=== PATIENT | female | born 1990 | race African-American/Black ===

== ENCOUNTER 2019-06-25 09:16 | Inpatient (IN) | payer OTHER ==
[~2019-06-25] VITALS: Ht 165.1 cm; Wt 75.3 kg
[2019-06-25 10:14] LABS: UA SPECIFIC GRAVITY >=1.030 (1.005-1.035); microscopic required? YES; urine erythrocyte 1+ (NEGATIVE)
[2019-06-25 10:30] LABS: ALBUMIN 4.1 g/dL (3.4-5.0); ALKALINE PHOSPHATASE 66 U/L (46-116); ALT/SGPT 15 U/L (14-59); AST/SGOT 43 U/L (15-37); BILIRUBIN TOTAL 0.35 mg/dL (0.20-1.00); CALCIUM 9.7 mg/dL (8.5-10.1); CARBON DIOXIDE 21.6 mmol/L (21-32); CHLORIDE SERUM 128 mmol/L (98-107); GLUCOSE SERUM 245 mg/dL (74-106); POTASSIUM SERUM 4.5 mmol/L (3.5-5.1)
[2019-06-25 10:32] LABS: AMPHETAMINE QUAL UR NONE DETECTED (See below)
[2019-06-25 10:44] LABS: GFR1 7 mL/min; TOTAL PROTEIN, SERUM 9.3 g/dL (6.4-8.2)
[2019-06-25 10:48] LABS: LIPASE 2077 IU/L (73-393)
[2019-06-25 10:51] LABS: SODIUM SERUM 173 mmol/L (136-145)
[2019-06-25 10:52] LABS: CREATININE SERUM 7.3 mg/dL (0.6-1.0); MAGNESIUM 4.3 mg/dL (1.8-2.4)
[2019-06-25 11:21] LABS: PLATELET COUNT 74 x10^3mcL (130-400); RED CELL DISTRIBUTION WIDTH 21.3 % (11.5-14.5)
[2019-06-25 11:24] LABS: SEGMENTED NEUTROPHILS 92 % (37-75)
[2019-06-25 11:25] LABS: MONOCYTE 3 % (0-7); rbc morphology (normal/abnorm) ABNORMAL (NORMAL)
[2019-06-25 11:26] LABS: PLATELET MORPHOLOGY DECREASED
[2019-06-25 15:02] LABS: ALBUMIN 3.4 g/dL (3.4-5.0); BILIRUBIN TOTAL 0.3 mg/dL (0.20-1.00); CALCIUM 8.6 mg/dL (8.5-10.1); CARBON DIOXIDE 20.5 mmol/L (21-32); POTASSIUM SERUM 4.6 mmol/L (3.5-5.1)
[2019-06-25 15:07] LABS: CREATININE SERUM 6.3 mg/dL (0.6-1.0)
[2019-06-25 17:22] VITALS: BP 95/60
[2019-06-25 19:15] VITALS: BP 93/51
[2019-06-25 23:07] VITALS: BP 114/71
[2019-06-26] VITALS (8 sets, daily range): BP systolic 91–134; BP diastolic 54–82; Ht 165.1 cm; Wt 75.3 kg
[2019-06-26 05:32] LABS: BASOPHIL % 0 % (0-2); PLATELET COUNT 55 x10^3mcL (130-400); RED CELL DISTRIBUTION WIDTH 22.2 % (11.5-14.5)
[2019-06-26 05:47] LABS: BILIRUBIN DIRECT 0.16 mg/dL (0.0-0.2); BILIRUBIN TOTAL 0.5 mg/dL (0.20-1.00); CALCIUM 8.2 mg/dL (8.5-10.1); PHOSPHOROUS 3.6 mg/dL (2.5-4.9); POTASSIUM SERUM 4.4 mmol/L (3.5-5.1)
[2019-06-26 05:54] LABS: ALBUMIN 3.2 g/dL (3.4-5.0)
[2019-06-26 05:55] LABS: AMYLASE 126 U/L (25-115); LIPASE 1004 IU/L (73-393)
[2019-06-26 05:59] LABS: CREATININE SERUM 4.9 mg/dL (0.6-1.0)
[2019-06-27] VITALS (9 sets, daily range): BP systolic 100–117; BP diastolic 56–79
[2019-06-27 05:43] LABS: PLATELET COUNT 50 x10^3mcL (130-400); RED CELL DISTRIBUTION WIDTH 22.5 % (11.5-14.5)
[2019-06-27 05:51] LABS: ALBUMIN 3.1 g/dL (3.4-5.0); BILIRUBIN TOTAL 0.53 mg/dL (0.20-1.00); CALCIUM 8.5 mg/dL (8.5-10.1); CARBON DIOXIDE 21.1 mmol/L (21-32); CREATININE SERUM 3.3 mg/dL (0.6-1.0); MAGNESIUM 2.6 mg/dL (1.8-2.4); PHOSPHOROUS 3.4 mg/dL (2.5-4.9); POTASSIUM SERUM 3.6 mmol/L (3.5-5.1); TOTAL PROTEIN, SERUM 7.1 g/dL (6.4-8.2)
[2019-06-27 06:18] LABS: BAND NEUTROPHIL 0 % (0-10); BASOPHIL 0 % (0-2); MONOCYTE 6 % (0-7); SEGMENTED NEUTROPHILS 87 % (37-75)
[2019-06-27 06:19] LABS: ovalocyte/elliptocyte 1+; rbc morphology (normal/abnorm) ABNORMAL (NORMAL)
[2019-06-27 06:21] LABS: burr cell (echinocyte) 1+
[2019-06-27 06:22] LABS: PLATELET MORPHOLOGY PLATELETS DECREASED
[2019-06-28 06:55] VITALS: BP 106/68
[2019-06-28 07:47] LABS: RED CELL DISTRIBUTION WIDTH 22.4 % (11.5-14.5)
[2019-06-28 07:53] LABS: CALCIUM 8.6 mg/dL (8.5-10.1); CARBON DIOXIDE 24.2 mmol/L (21-32); POTASSIUM SERUM 3.2 mmol/L (3.5-5.1)
[2019-06-28 08:40] LABS: BAND NEUTROPHIL 0 % (0-10); BASOPHIL 0 % (0-2); MONOCYTE 8 % (0-7); SEGMENTED NEUTROPHILS 78 % (37-75); rbc morphology (normal/abnorm) ABNORMAL (NORMAL)
[2019-06-28 08:42] LABS: ovalocyte/elliptocyte 1+
[2019-06-28 08:43] LABS: burr cell (echinocyte) 1+
[2019-06-28 09:48] LABS: PLATELET COUNT 49 x10^3mcL (130-400)
[2019-06-28 12:26] VITALS: BP 113/70
[2019-06-28 16:35] VITALS: BP 120/73
[2019-06-28 22:00] VITALS: BP 113/68
[2019-06-29 05:37] VITALS: BP 113/65
[2019-06-29 07:06] LABS: CALCIUM 7.8 mg/dL (8.5-10.1); CARBON DIOXIDE 26.4 mmol/L (21-32); CREATININE SERUM 1.6 mg/dL (0.6-1.0); POTASSIUM SERUM 3.6 mmol/L (3.5-5.1)
[2019-06-29 08:15] LABS: PLATELET COUNT 54 x10^3mcL (130-400)
[2019-06-29 08:44] VITALS: BP 132/76
[2019-06-29 10:51] LABS: BAND NEUTROPHIL 0 % (0-10); BASOPHIL 0 % (0-2); MONOCYTE 12 % (0-7); SEGMENTED NEUTROPHILS 72 % (37-75)
[2019-06-29 10:52] LABS: ovalocyte/elliptocyte 1+; rbc morphology (normal/abnorm) ABNORMAL (NORMAL)
[2019-06-29 10:53] LABS: burr cell (echinocyte) 1+
[2019-06-29 12:07] VITALS: BP 101/65
[2019-06-29 17:05] VITALS: BP 109/68
[2019-06-29 20:37] VITALS: BP 102/60
[2019-06-30 10:41] LABS: BASOPHIL % 0.6 % (0-2)
[2019-06-30 10:46] LABS: CARBON DIOXIDE 28.5 mmol/L (21-32); CREATININE SERUM 1.5 mg/dL (0.6-1.0)
[2019-06-30 11:12] LABS: POTASSIUM SERUM 2.7 mmol/L (3.5-5.1)
[2019-06-30 12:10] LABS: PLATELET COUNT 78 x10^3mcL (130-400); RED CELL DISTRIBUTION WIDTH 22.1 % (11.5-14.5)
[2019-06-30 13:00] VITALS: BP 102/58; BP 117/67
[2019-06-30 16:44] VITALS: BP 115/76
[2019-07-01 06:40] VITALS: BP 102/55
[2019-07-01 08:21] LABS: BASOPHIL % 0.2 % (0-2)
[2019-07-01 08:58] LABS: PLATELET COUNT 88 x10^3mcL (130-400); RED CELL DISTRIBUTION WIDTH 20.9 % (11.5-14.5)
[2019-07-01 09:07] LABS: CALCIUM 7.5 mg/dL (8.5-10.1); CARBON DIOXIDE 28.6 mmol/L (21-32); CREATININE SERUM 1.6 mg/dL (0.6-1.0); POTASSIUM SERUM 3.3 mmol/L (3.5-5.1)
[2019-07-01 09:45] VITALS: BP 116/78
[2019-07-01 12:26] VITALS: BP 101/57
[2019-07-01 16:00] VITALS: BP 111/70
[2019-07-02 06:42] LABS: CALCIUM 7.7 mg/dL (8.5-10.1); CARBON DIOXIDE 27.3 mmol/L (21-32); CREATININE SERUM 1.7 mg/dL (0.6-1.0)
[2019-07-02 06:59] LABS: POTASSIUM SERUM 2.9 mmol/L (3.5-5.1)
[2019-07-02 08:06] LABS: PLATELET COUNT 115 x10^3mcL (130-400); RED CELL DISTRIBUTION WIDTH 21.2 % (11.5-14.5)
[2019-07-02 08:10] LABS: BAND NEUTROPHIL 0 % (0-10); BASOPHIL 0 % (0-2); MONOCYTE 10 % (0-7); PLATELET MORPHOLOGY PLATELETS DECREASED; SEGMENTED NEUTROPHILS 83 % (37-75)
[2019-07-02 08:11] LABS: rbc morphology (normal/abnorm) ABNORMAL (NORMAL)
[2019-07-02 08:45] VITALS: BP 114/58
[2019-07-02 17:28] VITALS: BP 107/71
[2019-07-02 20:50] VITALS: BP 116/68
[2019-07-03 05:36] VITALS: BP 119/71
[2019-07-03 07:27] LABS: BASOPHIL % 0.4 % (0-2)
[2019-07-03 08:13] LABS: PLATELET COUNT 114 x10^3mcL (130-400); RED CELL DISTRIBUTION WIDTH 21.3 % (11.5-14.5)
[2019-07-03 08:17] LABS: ovalocyte/elliptocyte 1+; rbc morphology (normal/abnorm) ABNORMAL (NORMAL)
[2019-07-03 08:31] LABS: CALCIUM 7.7 mg/dL (8.5-10.1); CARBON DIOXIDE 26.4 mmol/L (21-32); CREATININE SERUM 1.6 mg/dL (0.6-1.0)
[2019-07-03 08:35] LABS: POTASSIUM SERUM 2.6 mmol/L (3.5-5.1)
[2019-07-03 08:46] VITALS: BP 111/71
[2019-07-03 12:24] VITALS: BP 110/62
[2019-07-03 16:50] VITALS: BP 111/59
[2019-07-03 21:15] VITALS: BP 110/64
[2019-07-04 06:03] VITALS: BP 105/56
[2019-07-04 07:14] LABS: BASOPHIL % 0.4 % (0-2)
[2019-07-04 07:24] LABS: PLATELET COUNT 115 x10^3mcL (130-400); RED CELL DISTRIBUTION WIDTH 21.5 % (11.5-14.5); rbc morphology (normal/abnorm) ABNORMAL (NORMAL)
[2019-07-04 07:25] LABS: ovalocyte/elliptocyte 1+
[2019-07-04 07:34] LABS: CALCIUM 7.7 mg/dL (8.5-10.1); CARBON DIOXIDE 27.9 mmol/L (21-32); CREATININE SERUM 1.6 mg/dL (0.6-1.0)
[2019-07-04 08:08] LABS: POTASSIUM SERUM 2.6 mmol/L (3.5-5.1)
[2019-07-04 08:25] VITALS: BP 109/60
[2019-07-04 11:47] VITALS: BP 115/69
[2019-07-04 16:16] VITALS: BP 113/65
[2019-07-04 21:25] VITALS: BP 110/68
[2019-07-05 10:34] LABS: BASOPHIL % 0.1 % (0-2); PLATELET COUNT 157 x10^3mcL (130-400)
[2019-07-05 10:38] LABS: CALCIUM 7.7 mg/dL (8.5-10.1); CARBON DIOXIDE 27.5 mmol/L (21-32); CREATININE SERUM 1.6 mg/dL (0.6-1.0)
[2019-07-05 10:41] LABS: RED CELL DISTRIBUTION WIDTH 22.2 % (11.5-14.5)
[2019-07-05 10:42] LABS: POTASSIUM SERUM 2.9 mmol/L (3.5-5.1)
[2019-07-05 14:05] LABS: ovalocyte/elliptocyte 1+; rbc morphology (normal/abnorm) ABNORMAL (NORMAL)
[2019-07-06 06:49] LABS: CALCIUM 7.5 mg/dL (8.5-10.1); CARBON DIOXIDE 27.2 mmol/L (21-32); CREATININE SERUM 1.5 mg/dL (0.6-1.0); POTASSIUM SERUM 3.2 mmol/L (3.5-5.1)
[2019-07-08 05:41] VITALS: BP 107/67
[2019-07-09] MEDS ORDERED: GOOD SENSE OMEP20 MG PO (21:30)
[2019-07-09] MEDS ORDERED: OLANZAPINE5 M2 PO (21:31)
[2019-07-09] MEDS ORDERED: KLOR-CON M2020 MEQ PO (21:31)
[2019-07-09] MEDS ORDERED: METOCLOPRAMIDE10 M2 PO (21:31)
[2019-07-09] MEDS ORDERED: APAP500 MG PO (21:32)
== END 2019-07-09 23:32 | disposition short-term general hospital (02) | DRG 871 ==
LOC: ED 09:16 → IC 14:31 → DU 14:31 → IC 15:14 → DU 06-27 06:43 → MU 07-03 20:38
PROVIDERS: Emergency Medicine; Internal Medicine; Internal Medicine Gastroenterology; ADMIT Internal Medicine
PROC: 0DJ08ZZ Inspection of Upper Intestinal Tract, Via Natural or Artificial Opening Endoscopic (ICD-10-PCS; principal; 2019-07-02 13:00)
DX: A41.9 Sepsis, unspecified organism (principal); R65.21 Severe sepsis with septic shock; K85.90 Acute pancreatitis without necrosis or infection, unspecified; G93.41 Metabolic encephalopathy; Z68.1 Body mass index [BMI] 19.9 or less, adult; E87.2 Acidosis; E87.0 Hyperosmolality and hypernatremia; N17.9 Acute kidney failure, unspecified; M62.82 Rhabdomyolysis; D68.9 Coagulation defect, unspecified; J93.9 Pneumothorax, unspecified; E46 Unspecified protein-calorie malnutrition; F25.0 Schizoaffective disorder, bipolar type; E86.0 Dehydration; I25.10 Atherosclerotic heart disease of native coronary artery without angina pectoris; J98.2 Interstitial emphysema; E87.8 Other disorders of electrolyte and fluid balance, not elsewhere classified; D69.6 Thrombocytopenia, unspecified; N18.9 Chronic kidney disease, unspecified; D64.9 Anemia, unspecified; E87.6 Hypokalemia; K20.9 Esophagitis, unspecified; K29.80 Duodenitis without bleeding; Z79.899 Other long term (current) drug therapy
CPT/HCPCS: 43235; 82962; 87804; 94150; 97116-GP; 97530-GP; A9500; C9113; G0378; G0480; J0696; J1200; J1610; J2250; J2270; J2310; J2543; J2550; J2765; J2785; J3010; J3370; J3480; J3490; J7030; J7042; J7060; J7070; J8597; P9045; Q0092; Q9966; Q9967